=== PATIENT | female | born 1980 | race Caucasian/White ===

== ENCOUNTER 2020-04-26 10:26 | Emergency (ER) | payer BC, OTHER ==
[~2020-04-26] VITALS: Ht 170.2 cm; Wt 65.8 kg
--- NOTE | 2020-04-26 11:12 | NUR ---
Patient discharged to home in stable condition. Written and verbal after care instructions given. Patient verbalizes understanding of instructions. Stressed follow up or return to ER for worsening s/s.
== END 2020-04-26 11:12 | disposition home or self-care (01) ==
LOC: ER 10:26
DX: U07.1 COVID-19 (principal)
CPT/HCPCS: 99283; U0003; A4663